=== PATIENT | female | born 1960 | race American Indian/Alaskan Native ===

== ENCOUNTER 2017-12-12 09:59 | Emergency (ER) | payer SELFPAY ==
[~2017-12-12] VITALS: Ht 162.6 cm; Wt 59.1 kg
[2017-12-12 10:02] VITALS: BP 132/62; TEMP 98.7
[2017-12-12 11:28] VITALS: PULSE 60
== END 2017-12-12 11:26 | disposition home or self-care (01) ==
LOC: COL.ER 09:59
DX: S80.01XA Contusion of right knee, initial encounter (principal); M25.061 Hemarthrosis, right knee; W10.9XXA Fall (on) (from) unspecified stairs and steps, initial encounter; Y92.009 Unspecified place in unspecified non-institutional (private) residence as the place of occurrence of the external cause
CPT/HCPCS: Q4045